=== PATIENT | female | born 1960 | race American Indian/Alaskan Native ===

== ENCOUNTER 2020-03-18 17:16 | Emergency (ER) | payer OTHER ==
[2020-03-18 20:22] VITALS: BP 147/96
--- NOTE | 2020-03-18 20:22 | Emergency Department Report ---
Blank Doc - Documentation Documentation: 59-year-old female that presents with neck, mid and lower back pain s/p fall at [facility]. Denies any LOC. This initial assessment/diagnostic orders/clinical plan/treatment(s) is/are subject to change based on patient's health status, clinical progression and re- assessment by fellow clinical providers in the ED. Further treatment and workup at subsequent clinical providers discretion. Patient/guardians urged not to elope from the ED as their condition may be serious if not clinically assessed and managed. Initial orders include: 1- Patient sent to [facility] for further evaluation and treatment 2- xrays
--- NOTE | 2020-03-18 21:38 | XRay Report ---
LUMBOSACRAL SPINE 3 VIEWS INDICATION / CLINICAL INFORMATION: pain s/p fall. COMPARISON: None available. FINDINGS: VERTEBRAE: No acute fracture. No significant malalignment. DISC SPACES / FACET JOINTS:Mild lower lumbar facet arthropathy and preservation of the disc spaces. PARASPINAL SOFT TISSUES:No significant abnormality. ADDITIONAL FINDINGS: None. Signer Name: Patrick Zavala MD Signed: 03/18/2020 9:33 PM Workstation Name: [id number]
--- NOTE | 2020-03-18 21:39 | XRay Report ---
THORACIC SPINE 2 VIEWS INDICATION / CLINICAL INFORMATION: pain s/p fall. COMPARISON: None available. FINDINGS: VERTEBRAE: No acute fracture. No significant malalignment. DISC SPACES / FACET JOINTS:No significant abnormality. PARASPINAL SOFT TISSUES:No significant abnormality. ADDITIONAL FINDINGS: None. Signer Name: Patrick Zavala MD Signed: 03/18/2020 9:34 PM Workstation Name: [id number]
--- NOTE | 2020-03-18 21:40 | XRay Report ---
CERVICAL SPINE 4 VIEWS INDICATION / CLINICAL INFORMATION: pain s/p fall. COMPARISON: None available. FINDINGS: VERTEBRAE: No acute fracture. No significant malalignment. DISC SPACES / FACET JOINTS:Intervertebral disc space narrowing worst at C5-C6 and C6-C7. Lower cervic al facet arthropathy present. PARASPINAL SOFT TISSUES:No significant abnormality. ADDITIONAL FINDINGS: None. Signer Name: Patrick Zavala MD Signed: 03/18/2020 9:36 PM Workstation Name: [id number]
[2020-03-18] MEDS ORDERED: IBUPROFEN 800 MG TAB PO ONE (23:50)
--- NOTE | 2020-03-18 23:50 | Emergency Department Report ---
ED Fall HPI - General Chief Complaint: Fall Stated Complaint: FALL Time Seen by Provider: 03/18/20 20:16 Source: patient, EMS Mode of arrival: Ambulatory Limitations: No Limitations - History of Present Illness Initial Comments: Mrs. Fuentes is a 59-year-old female who has neck upper lower back pain after fall at [facility]. She slipped on gel-like substance. She did not strike her head. No LOC. Mild to moderate pain. She is ambulatory. She arrived via EMS. MD Complaint: fall -: Sudden, This afternoon Fall From: standing Fall Witnessed: yes, by family Place Fall Occurred: home, other ([facility] [employer]) Loss of Consciousness: none Prolonged Down Time?: no Symptoms Prior to Fall: none Severity: mild, moderate Quality: dull, aching Context: tripped/slipped Associated Symptoms: denies - Related Data Previous Rx's Medication Instructions Recorded Last Taken Type Cyclobenzaprine [Flexeril] 10 mg PO TID PRN #20 tablet 03/18/20 Unknown Rx Ibuprofen [Motrin 400 MG tab] 400 mg PO TID 5 Days #15 tablet 03/18/20 Unknown Rx Allergies Allergy/AdvReac Type Severity Reaction Status Date / Time erythromycin base Allergy Nausea Verified 03/18/20 18:08 metronidazole [From Flagyl] Allergy Nausea Verified 03/18/20 18:08 sulfamethoxazole Allergy Nausea Verified 03/18/20 18:08 [From Bactrim] Tetracyclines Allergy Nausea Verified 03/18/20 18:08 trimethoprim [From Bactrim] Allergy Nausea Verified 03/18/20 18:08 ED Review of Systems ROS: Stated complaint: FALL Other details as noted in HPI Constitutional: denies: fever, malaise Respiratory: denies: cough, shortness of breath Cardiovascular: denies: chest pain Gastrointestinal: denies: abdominal pain, nausea, vomiting Musculoskeletal: back pain ED Past Medical Hx - Past Medical History Previous Medical History?: Yes Hx Hypertension: Yes Additional medical history: high cholesterol - Surgical History Past Surgical History?: Yes Additional Surgical History: partial hysterectomy. tubal ligation. - Social History Smoking Status: Never Smoker Substance Use Type: None - Medications Home Medications: Home Medications Medication Instructions Recorded Confirmed Last Taken Type Cyclobenzaprine [Flexeril] 10 mg PO TID PRN #20 tablet 03/18/20 Unknown Rx Ibuprofen [Motrin 400 MG tab] 400 mg PO TID 5 Days #15 tablet 03/18/20 Unknown Rx ED Physical Exam - General Limitations: No Limitations General appearance: alert, in no apparent distress - Head Head exam: Present: atraumatic, normocephalic - Eye Eye exam: Present: normal appearance - ENT ENT exam: Present: mucous membranes moist - Neck Neck exam: Present: normal inspection, full ROM. Absent: tenderness, meningismus - Respiratory Respiratory exam: Present: normal lung sounds bilaterally. Absent: respiratory distress, wheezes, rales, rhonchi - Cardiovascular Cardiovascular Exam: Present: regular rate, normal rhythm, normal heart sounds. Absent: systolic murmur, diastolic murmur, rubs, gallop - GI/Abdominal GI/Abdominal exam: Present: soft, normal bowel sounds. Absent: distended, tenderness, guarding, rebound - Extremities Exam Extremities exam: Present: normal inspection - Back Exam Back exam: Present: normal inspection, full ROM. Absent: tenderness, CVA tenderness (R), CVA tenderness (L), muscle spasm, paraspinal tenderness, vertebral tenderness, rash noted - Neurological Exam Neurological exam: Present: alert, oriented X3 - Psychiatric Psychiatric exam: Present: normal affect, normal mood - Skin Skin exam: Present: warm, dry, intact, normal color. Absent: rash ED Course Vital Signs 03/18/20 20:20 Temperature 97.7 F Pulse Rate 84 Respiratory 20 Rate Blood Pressure 147/96 O2 Sat by Pulse 99 Oximetry ED Medical Decision Making - Medical Decision Making Neck and back pain after slip and fall at a local store. No evidence of severe traumatic injury. Cervical thoracic lumbar spine radiographs unremarkable. Patient received prescription for ibuprofen and Flexeril. Critical care attestation.: If time is entered above; I have spent that time in minutes in the direct care of this critically ill patient, excluding procedure time. ED Disposition Clinical Impression: Fall, Neck strain, Back strain Disposition: [id number] TO HOME OR SELFCARE Is pt being admited?: No Does the pt Need Aspirin: No Condition: Stable Instructions: Cervical Spine Strain (ED), Low Back Strain (ED) Prescriptions: Cyclobenzaprine [Flexeril] 10 mg PO TID PRN #20 tablet PRN Reason: Muscle Spasm Ibuprofen [Motrin 400 MG tab] 400 mg PO TID 5 Days #15 tablet
== END 2020-03-19 00:05 | disposition home or self-care (01) ==
LOC: ED 17:16
DX: S16.1XXA Strain of muscle, fascia and tendon at neck level, initial encounter (principal); S39.012A Strain of muscle, fascia and tendon of lower back, initial encounter; I10 Essential (primary) hypertension; Z98.51 Tubal ligation status; Z98.890 Other specified postprocedural states; Z79.1 Long term (current) use of non-steroidal anti-inflammatories (NSAID); Z79.899 Other long term (current) drug therapy; Z88.1 Allergy status to other antibiotic agents; Z88.8 Allergy status to other drugs, medicaments and biological substances; W01.0XXA Fall on same level from slipping, tripping and stumbling without subsequent striking against object, initial encounter; Y93.89 Activity, other specified; Y92.009 Unspecified place in unspecified non-institutional (private) residence as the place of occurrence of the external cause; Y99.8 Other external cause status
CPT/HCPCS: 72040; 72070; 72100